=== PATIENT | female | born 1995 | race Asian ===

== ENCOUNTER 2016-10-10 21:58 | Emergency (ER) | payer OTHER ==
[~2016-10-10] VITALS: Ht 154.9 cm; Wt 52.3 kg
[2016-10-10 22:02] VITALS: BP 138/96; PULSE 82; RESP 20; O2SAT 99
[2016-10-10 22:58] LABS: BASOPHILS % (AUTO) 0.5 % (0-3); MONOCYTES % (AUTO) 9.5 % (4-12); Mean Corpuscular Volume 87.8 fL (81-100); NEUTROPHILS % (AUTO) 66.9 % (40-74); Platelet Count 242 bil/L (150-400)
--- NOTE | 2016-10-10 23:14 | ED.REPORT ---
HPI-Abd Pain F Under 40 Date of Service Oct 10, 2016 ED Provider: Saroj Rosales DO The patient is an otherwise healthy 20 year old female who presents to the ED with 2 days of dysuria. Associated symptoms include frequent urination, low pelvic pain, and back pain. P tried taking a cranberry supplement which eased symptoms slightly. Yesterday, she reported a subjective fever and vomiting. She has not vomited today. She denies abnormal vaginal discharge and bleeding. Nursing Notes Stated Complaint: LOWER ABD PAIN, LOWER BACK PAIN Chief Complaint: Female Abdominal Pain Nursing Notes Reviewed: Yes Allergies: Coded Allergies: No Known Allergies (Unverified , 10/10/16) General Time Seen by MD: 22:49 Chief Complaint Dysuria Hx Obtained From: Patient Arrived By: Walk-in Sudden in Onset?: Yes Onset Occurred: 2 days ago Symptom Duration: Since onset Location: : Back: Flank left: Flank right Quality: Painful Severity: Current: Mild Associated with: Reports: Fever, Vomiting Recent Healthcare: No recent doctor visit, No recent hospitalization Similar Sx Previous: No Past Medical History Past Medical History healthy Past Surgical History denies Smoking History Unknown if Ever Smoker Social History Other Social History: Good social support, Local resident Ambulatory Status Independent Review of Systems Constitutional: Reports: Fever GI: Reports: Vomiting Female: Reports: Dysuria, Flank pain, Pelvic pain, Urinary frequency, Urination increased, Denies: Hematuria, , Vaginal bleeding - abnl, Vaginal discharge Musculoskeletal: Reports: Back pain Complete sys rev & neg: except as marked. Physical Exam Initial Vital Signs Vital Signs (First) Date Time Temp Pulse Resp B/P Pulse Ox O2 Delivery O2 Flow Rate FiO2 10/10/16 22:02 37.0 82 20 138/96 99 Room Air Initial VS: Reviewed General/Constitutional: Awake, Alert, Cooperative Respiratory / Chest: Atraumatic, Breath sounds NL, Breath sounds = bilat, No respiratory distress Cardiovascular: Heart rate NL, Regular rhythm, Heart sounds NL Tenderness/Guarding/Rebound: Positive: Tender diffuse, Tender suprapubic Flank / Spine / Paraspinal: Positive: Flank tender bilateral Head / Eyes: Atraumatic, Normocephalic Skin: Atraumatic, Color NL, No rash Upper Extremity / MS: Atraumatic, Inspection NL, Full range of motion, No deformity Lower Extremity / Pelvis / MS: Atraumatic, Inspection NL, Full range of motion , No deformity Interpretation & Diagnostics Lab Results Interpretation Result Diagram: 10/10/16 2245 10/10/16 2245 Test 10/10/16 22:22 10/10/16 22:45 Urine Color [place] (YELLOW) Urine Appearance Cloudy (CLEAR,HAZY) Urine pH (5.0-8.0) Urine Specific [place] 1.013 (1.003-1.035) Urine Protein mg/dL (NEG,TRACE) Urine Glucose (UA) Negativemg/dL (NEGATIVE) Urine Ketones mg/dL (NEGATIVE) Urine Occult Blood Large (NEGATIVE) Urine Nitrite (NEGATIVE) Urine Bilirubin (NEGATIVE) Urine Urobilinogen mg/dL (NORMAL) Urine Leukocyte Esterase (NEGATIVE) Urine RBC >50/hpf (0-2) Urine WBC >50/hpf (0-5) Urine Epithelial Cells Many/hpf (NONE-MOD) Urine Crystals None seen (NONE SEEN) Urine Bacteria Many/hpf (NONE-FEW) Urine Hyaline Casts None/lpf (NONE) Urine Granular Casts None seen (NONE SEEN) Urine Waxy Casts None seen (NONE SEEN) Urine Red Blood Cell Casts None seen (NONE SEEN) Urine White Blood Cell Casts None seen (NONE SEEN) Urine Mucus None seen (None Seen) Urine Trichomonas None seen (NONE SEEN) Urine Yeast None (NONE SEEN) Urinalysis Comment Color interference Urine Culture Reflexed Indicated Hold Urine Received (Received) White Blood Count 13.1th/mm3 (3.8-10.1) Red Blood Count 4.60mil/mm3 (3.90-5.20) Hemoglobin 13.8g/dL (12.0-15.6) Hematocrit 40.4% (35.0-46.0) Mean Corpuscular Volume 87.8fL (81-100) Mean Corpuscular Hemoglobin 30.0pg (27.0-35.0) Mean Corpuscular Hemoglobin Concent 34.2% (32.0-37.0) Red Cell Distribution Width 13.1% (12.3-15.4) Platelet Count 242bil/L (150-400) Neutrophils (%) (Auto) 66.9% (40-74) Lymphocytes (%) (Auto) 21.9% (14-46) Monocytes (%) (Auto) 9.5% (4-12) Eosinophils (%) (Auto) 1.0% (0-5) Basophils (%) (Auto) 0.5% (0-3) Sodium Level 138mEq/L (134-144) Potassium Level 3.6mEq/L (3.5-5.2) Chloride Level 100mEq/L (97-108) Carbon Dioxide Level 24mmol/L (18-29) Blood Urea Nitrogen 13mg/dL (6-20) Creatinine 0.85mg/dL (0.57-1.00) Estimat Glomerular Filtration Rate 122mL/min (>59) Glucose Level 91mg/dL (60-99) Calcium Level 9.5mg/dL (8.5-10.1) Magnesium Level 2.0mg/dL (1.6-2.6) Total Bilirubin 0.4mg/dL (0.0-1.2) Aspartate Amino Transf (AST/SGOT) 13U/L (0-50) Alanine Aminotransferase (ALT/SGPT) 8U/L (0-32) Alkaline Phosphatase 44U/L (25-150) Total Protein 7.5g/dL (6.4-8.4) Albumin 4.6g/dL (3.4-5.0) Lipase 31U/L (13-60) Hold [place] Top Tube Received (Received) Lab Results Interpretation: urine dip neg for Re-Eval/Medical Decision Med Decision/Clinical Course Healthy 20-year-old female with urine frequency of 15 voids today. Suprapubic pain. Urine consistent with a UTI. She states that she does not have risk factors for sexual transmitted infection and request we did not test her. I will place her on Keflex. [place] take home pack as she seems to be having at least moderate pain. Follow-up with the urine cultures with her primary care. No abdominal tenderness consistent with appendicitis or acute abdomen. Re-Evaluation/Progress : Time of Eval: 23:25 Re-Evaluation/Progress Note: Pt checked. Counseled Regarding: Diagnosis, Lab results, Need for follow-up, When/why to return to ED Discharge & Departure Primary Impression: Urinary tract infection Urinary tract infection type: site unspecified Hematuria presence: without hematuria Qualified Code: N39.0 - Urinary tract infection, site not specified Disposition: Home Discharge Condition All VS Reviewed: Yes Condition: Stable Patient Instructions: Urinary Tract Infection in Women (ED) Additional Instructions: Thank you for entrusting us with your care today. Your urine shows that you have a urinary tract infection. Take the antibiotic Keflex 3x/day for 5 days as directed. Drink plenty of fluids and stay well hydrated. Take Motrin as needed for moderate pain. You may take 1-2 [place] every 6 hours for more severe pain. This is a narcotic and can be habit forming.. Do not drink alcohol, drive vehicles, or take acetaminophen, or operate machinery while taking narcotics. Follow up with your primary care physician in the next 3-5 days. Return to the Emergency Department if you experience any new or worsening symptoms including increased pain, blood in your urine, increased vomiting, high fever or abdominal pain. I hope you feel better soon! Referrals: [facility] (PCP) [facility] Scribe Attestation Portion of this note were transcribed by Eleni Gonzalez. I, Dr. Rosales, personally performed the history, physical exam, and medical decision-making: I reviewed and confirmed the accuracy for the information in the transcribed note. Signed by: silva Carrasquillo, 10/11/16 0045 copies to: [facility] Saroj Rosales DO Oct 10, 2016 23:14 Eleni Gonzalez Oct 10, 2016 23:22
[2016-10-10 23:19] LABS: COLOR,URINE ORANGE (YELLOW)
[2016-10-10 23:20] LABS: APPEARANCE,URINE CLOUDY (CLEAR,HAZY); OCCULT BLOOD,URINE LARGE (NEGATIVE)
[2016-10-10] MEDS ORDERED: _HYDROcodone/APAP 5-325 mg Tablet PO PRN (23:30)
[2016-10-10 23:55] VITALS: BP 131/84; PULSE 76; RESP 18; O2SAT 99
== END 2016-10-10 23:56 | disposition home or self-care (01) ==
LOC: SED 21:58
DX: N39.0 Urinary tract infection, site not specified (principal); B96.20 Unspecified Escherichia coli [E. coli] as the cause of diseases classified elsewhere; R50.9 Fever, unspecified